=== PATIENT | male | born 1940 | race Caucasian/White ===

== ENCOUNTER 2016-10-25 08:19 | Emergency (ER) | payer MEDICARE, OTHER ==
[2016-10-25] MEDS ORDERED: methylPREDNISolone SUCCINATE 125 MG/2 ML VIAL IVP STA (08:47)
[2016-10-25] MEDS ORDERED: raNITIdine INJ 50 MG in SODIUM CHLORIDE 0.9% 50 ML IV ONE (08:48)
[2016-10-25] MEDS ORDERED: diphenhydrAMINE INJ 50 MG/ML VIAL IVP STA (08:48)
[2016-10-25] MEDS ORDERED: methylPREDNISolone SUCCINATE 125 MG/2 ML VIAL IVP ONE (09:00)
[2016-10-25] MEDS ORDERED: diphenhydrAMINE INJ 50 MG/ML VIAL ONE (09:00)
--- NOTE | 2016-10-25 09:30 | ED Physician Documentation ---
History of Present Illness - Stated complaint Stated Complaint: SWOLLEN TONGUE - Chief complaint Chief Complaint: Heent - History obtained from History obtained from: Patient - Additonal information Additional information: Patient is a 76-year-old male who presents with a chief complaint of a swollen tongue. He noticed the onset of symptoms this morning when he woke up. He denies any preceding symptoms the day before. He says today the right side of his tongue is swollen. 6 months ago he had an episode with the left side of the tongue was swollen and was treated with IM dose of cortisone. He denies any dermatologic complaints and is not felt weak tired or short of breath. The patient is not on ROSE MARY inhibitor knows his medications very well. He has been on metoprolol, flecainide, and Xarelto for long time. He was on dabigatran in the past however. Other than these 2 discrete episodes of tongue swelling is never had anything like this before. He denies any generalized urticaria, rash , shortness of breath, chest pain, nausea, vomiting. Review of systems: For pertinent positive and negatives in the review of systems please see the history of present illness, otherwise all other systems have been reviewed and are negative. Dragon disclaimer: Parts of this medical record were created using voice recognition technology. Because of the inherent limitations of this system, occasional same sounding word substitutions do occur and persist despite proofreading. Please read the document for context. Review of Systems Constitutional: denies: Fever Eyes: denies: Loss of vision Throat: denies: Sore throat Respiratory: denies: Dyspnea, Cough GI: denies: Abdominal Pain, Abdominal Swelling, Nausea, Vomiting PD PAST MEDICAL HISTORY - Past Medical History Past Medical History: Yes Cardiovascular: Hypertension, Atrial fibrillation - Past Surgical History Past Surgical History: Yes - Present Medications Home Medications: Ambulatory Orders Medication Instructions Recorded Confirmed Flecainide [Tambocar] 25 mg PO DAILY 10/25/16 10/25/16 Metoprolol Tartrate 12.5 mg PO BID 10/25/16 10/25/16 Rivaroxaban [Xarelto] 10 mg PO DAILY 10/25/16 10/25/16 - Allergies Allergies/Adverse Reactions: Allergies Allergy/AdvReac Type Severity Reaction Status Date / Time codeine Allergy Unknown Verified 10/25/16 08:25 - Social History Does the pt smoke?: No Smoking Status: Never smoker Does the pt drink ETOH?: Yes ETOH Use: Wine Does the pt have substance abuse?: No PD ED PE NORMAL - General General: Alert and oriented X 3, No acute distress, Well developed/nourished - HEENT HEENT: Atraumatic, Other (Mild increased thickness of the right side of the tongue. The rest of the oropharynx is completely normal on examination) - Neck Neck: Supple, no meningeal sign - Cardiac Cardiac: RRR, No murmur, No gallop, No rub - Respiratory Respiratory: No respiratory distress, Clear bilaterally - Abdomen Abdomen: Normal bowel sounds, Non tender - Male Male : Deferred, Pt declined - Rectal Rectal: Deferred - Derm Derm: Normal color, Warm and dry - Extremities Extremities: No deformity, No tenderness to palpate - Neuro Neuro: Alert and oriented X 3 Results - Vitals Vitals: Vital Signs - 24 hr 10/25/16 10/25/16 08:23 09:53 Temperature 36.4 C L Heart Rate 88 61 Respiratory 18 16 Rate Blood Pressure 128/55 L 132/77 H O2 Saturation 96 97 Oxygen O2 Source Room air - Labs Labs: Laboratory Tests 10/25/16 10/25/16 09:10 09:10 WBC 6.6 RBC 4.89 Hgb 15.1 Hct 45.0 MCV 92.0 MCH 31.0 MCHC 33.6 RDW 13.9 Plt Count 168 MPV 8.6 Neut # 3.9 Lymph # 1.8 [place] # 0.4 Eos # 0.2 Baso # 0.1 Absolute Nucleated RBC 0.00 Nucleated RBCs 0.0 Sodium 136 Potassium 3.9 Chloride 105 Carbon Dioxide 22 Anion Gap 9.0 BUN 24 H Creatinine 1.1 Estimated GFR (MDRD) 65 L Glucose 157 H Calcium 9.3 PD MEDICAL DECISION MAKING - ED course Complexity details: reviewed old records, reviewed results, re-evaluated patient , considered differential, d/w patient, d/w family, d/w PMD ED course: Patient continues to do well clinically. There is interval decrease in the size of his tongue with treatments here he has been watch for a couple hours here in emergency department. There is no definite cause. The medications he is on were all reviewed by looking at several database is not are believed to be offending agents for the cause of angioedema. This is his second episode. I did discuss the case with his primary care physician. We felt that this time he probably should continue the current medications and his primary care physician I believe is going to talk with the patient and may be consult with a retirement benefits specialist. I will place the patient on a week's course of loratadine. Disposition: To home Clinical impression: 1. Acute angioedema cause unknown Departure - Departure Disposition: 01 Home, Self Care Clinical Impression: Allergic angioedema Qualifiers: Encounter type: initial encounter Qualified Code(s): T78.3XXA - Angioneurotic edema, initial encounter Condition: Good Instructions: ED Angioedema
[2016-10-25 09:32] LABS: BASOPHILS # (AUTO) 0.1 10^3/uL (0.0-0.1); BASOPHILS % (AUTO) 2.2 %; EOSINOPHILS # (AUTO) 0.2 10^3/uL (0.0-0.7); EOSINOPHILS % (AUTO) 3.3 %; HGB - HEMOGLOBIN 15.1 g/dL (14.0-18.0); LYMPHOCYTES # (AUTO) 1.8 10^3/uL (1.5-3.5); LYMPHOCYTES % (AUTO) 27.8 %; MEAN CORPUSCULAR HGB CONC 33.6 g/dL (32.0-36.0); MEAN PLATELET VOLUME 8.6 fL (7.4-11.4); MONOCYTES # (AUTO) 0.4 10^3/uL (0.0-1.0); MONOCYTES % (AUTO) 6.9 %; NEUTROPHILS # (AUTO) 3.9 10^3/uL (1.5-6.6); NEUTROPHILS % (AUTO) 59.8 %; RED BLOOD COUNT 4.89 10^6/uL (4.70-6.10); RED CELL DISTRIBUTION WIDTH 13.9 % (12.0-15.0); UNCORRECTED WHITE BLOOD COUNT 6.6 x10^3/uL; WHITE BLOOD COUNT 6.6 x10^3/uL (4.8-10.8)
[2016-10-25 09:39] LABS: CALCIUM 9.3 mg/dL (8.5-10.3); CREATININE 1.1 mg/dL (0.6-1.2); POTASSIUM 3.9 mmol/L (3.5-5.0)
[2016-10-25 09:53] VITALS: BP 132/77
== END 2016-10-25 10:45 | disposition home or self-care (01) ==
LOC: ED 08:19
DX: T78.3XXA Angioneurotic edema, initial encounter (principal); I10 Essential (primary) hypertension; I48.91 Unspecified atrial fibrillation; Z79.01 Long term (current) use of anticoagulants
CPT/HCPCS: 36415; 80048; 85025; 96374; 96375; 99283; 99284; J7040

== ENCOUNTER 2017-03-31 09:41 | Outpatient (CLI) | payer MEDICARE, OTHER ==
[2017-03-31 10:04] LABS: BASOPHILS # (AUTO) 0.2 10^3/uL (0.0-0.1); BASOPHILS % (AUTO) 2.6 %; EOSINOPHILS # (AUTO) 0.2 10^3/uL (0.0-0.7); EOSINOPHILS % (AUTO) 3.6 %; HGB - HEMOGLOBIN 14.3 g/dL (14.0-18.0); LYMPHOCYTES # (AUTO) 1.8 10^3/uL (1.5-3.5); LYMPHOCYTES % (AUTO) 30.3 %; MEAN CORPUSCULAR HEMOGLOBIN 30.8 pg (27.0-31.0); MEAN CORPUSCULAR VOLUME 90.5 fL (80.0-94.0); MEAN PLATELET VOLUME 8.2 fL (7.4-11.4); MONOCYTES # (AUTO) 0.5 10^3/uL (0.0-1.0); MONOCYTES % (AUTO) 7.7 %; NEUTROPHILS # (AUTO) 3.4 10^3/uL (1.5-6.6); NEUTROPHILS % (AUTO) 55.8 %; PLT - PLATELET COUNT 153 10^3/uL (130-450); RED BLOOD COUNT 4.65 10^6/uL (4.70-6.10); RED CELL DISTRIBUTION WIDTH 14.3 % (12.0-15.0)
[2017-03-31 10:20] LABS: ALBUMIN 3.8 g/dL (3.2-5.5); ALBUMIN/GLOBULIN RATIO 1.2 (1.0-2.2); ALKALINE PHOSPHATASE 62 IU/L (42-121); ALT ALANINE AMINOTRANSFERASE 31 IU/L (10-60); AST ASPARTATE AMINOTRANSFERASE 29 IU/L (10-42); BILIRUBIN,TOTAL 0.8 mg/dL (0.2-1.0); BUN - BLOOD UREA NITROGEN 21 mg/dL (6-20); CARBON DIOXIDE - CO2 22 mmol/L (21-32); CHLORIDE 102 mmol/L (101-111); CHOL/HDL RATIO 5.7 (<5.0); CHOLESTEROL 199 mg/dL; GFR - MDRD 72 (>89); GLUCOSE 112 mg/dL (70-100); HDL CHOLESTEROL 35 mg/dL; LDL CHOLESTEROL,CALCULATED 142 mg/dL; LDL/HDL RATIO 4.1 (<3.6); SODIUM 136 mmol/L (135-145); VLDL CHOLESTEROL 22 mg/dL
== END 2017-03-31 09:42 | disposition home or self-care (01) ==
LOC: LAB 09:41
PROVIDERS: ATTEND Internal Medicine
DX: K21.9 Gastro-esophageal reflux disease without esophagitis (principal); D53.9 Nutritional anemia, unspecified; E78.5 Hyperlipidemia, unspecified; I10 Essential (primary) hypertension; I48.91 Unspecified atrial fibrillation
CPT/HCPCS: 36415; 80053; 80061; 84443; 85025

== ENCOUNTER 2017-04-23 11:12 | Outpatient (CLI) | payer MEDICARE, OTHER | END 2017-04-23 11:13 | disposition home or self-care (01) | LOC: SC 11:12 | PROVIDERS: ATTEND Nurse Practitioner Family | DX: G47.33 Obstructive sleep apnea (adult) (pediatric) (principal) | CPT/HCPCS: 99214; G0463; 99212 ==

== ENCOUNTER 2017-06-26 14:55 | Outpatient (CLI) | payer MEDICARE, OTHER ==
--- NOTE | 2017-06-26 17:32 | CT Report ---
SINUS CT: 06/26/2017 HISTORY: Chronic left-sided congestion. TECHNIQUE: Axial noncontrast images of the sinuses with sagittal and coronal reconstructions. In accordance with CT protocol optimization, one or more of the following dose reduction techniques were utilized for this exam: Automated exposure control, adjustment of mA and/or KV based on patient size, or use of iterative reconstructive technique. FINDINGS: Frontal sinuses: Clear. Sphenoid sinuses: Clear. Maxillary sinuses: Small retention cyst on the right, clear on the left. Ethmoid sinuses: Trace membrane thickening. Nasal cavity: Minor nasal septal deviation to the right. Nasopharyngeal soft tissues: Not enlarged. Temporomandibular joint and C1-C2 alignment anatomic. IMPRESSION: MINIMAL CHANGES IN THE PARANASAL SINUSES ABOVE. NO SIGNIFICANT LEFT-SIDED SINUS DISEASE APPRECIATED. TD: 06/26/2017 17:32
== END 2017-06-26 14:56 | disposition home or self-care (01) ==
LOC: DI 14:55
PROVIDERS: ATTEND Internal Medicine
DX: R51 Headache (principal)
CPT/HCPCS: 70486

== ENCOUNTER 2017-10-07 09:12 | Outpatient (CLI) | payer MEDICARE, OTHER ==
--- NOTE | 2017-10-07 15:22 | XRAY Report ---
Procedure Date: 10/07/2017 Accession Number: [id number] / [id number] Procedure: FL - Modified Barium Swallow W/SP CPT Code: FULL RESULT: EXAM: Modified Barium Swallow W/SP DATE: 10/07/2017 10:08 AM CLINICAL HISTORY: OTHER DYSPHAGIA COMPARISON: None. TECHNIQUE: Under the direction of speech pathology, patient swallowed various consistencies of barium under lateral fluoroscopic observation of the neck. Fluoroscopic exposure time: 55 seconds. Number of fluoroscopic images: 1. Cine fluoroscopy recorded. FINDINGS: Airway Protection: Normal epiglottic motion. Note is made of tracheal penetration. No aspiration is observed. Other: None. Please also refer to full report from Speech Pathology. IMPRESSION: Penetration without aspiration. RADIA
== END 2017-10-07 09:13 | disposition home or self-care (01) ==
LOC: DI 09:12
PROVIDERS: ATTEND Otolaryngology
DX: R13.19 Other dysphagia (principal)
CPT/HCPCS: 74230; 92611; G8996; G8997; G8998

== ENCOUNTER 2017-11-12 09:19 | Outpatient (CLI) | payer MEDICARE, OTHER ==
[2017-11-12 17:25] LABS: HGB - HEMOGLOBIN 14.4 g/dL (14.0-18.0); MEAN CORPUSCULAR HEMOGLOBIN 31.1 pg (27.0-31.0); MEAN CORPUSCULAR HGB CONC 33.9 g/dL (32.0-36.0); MEAN CORPUSCULAR VOLUME 91.8 fL (80.0-94.0); MEAN PLATELET VOLUME 8.8 fL (7.4-11.4); RED BLOOD COUNT 4.64 10^6/uL (4.70-6.10); RED CELL DISTRIBUTION WIDTH 14.4 % (12.0-15.0); WHITE BLOOD COUNT 6.1 x10^3/uL (4.8-10.8)
[2017-11-12 17:59] LABS: CREATININE 1.1 mg/dL (0.6-1.2)
== END 2017-11-12 09:20 | disposition home or self-care (01) ==
LOC: LAB.F 09:19
PROVIDERS: ATTEND Internal Medicine
DX: I48.0 Paroxysmal atrial fibrillation (principal); Z79.899 Other long term (current) drug therapy
CPT/HCPCS: 36415; 80048; 85027

== ENCOUNTER 2018-04-06 09:35 | Outpatient (CLI) | payer MEDICARE, OTHER ==
[2018-04-06 18:29] LABS: ALBUMIN/GLOBULIN RATIO 1.1 (1.0-2.2); BILIRUBIN,TOTAL 1.1 mg/dL (0.2-1.0); CALCIUM 9.5 mg/dL (8.5-10.3); CREATININE 0.9 mg/dL (0.6-1.2); TOTAL PROTEIN 7.6 g/dL (6.7-8.2)
[2018-04-06 18:30] LABS: BASOPHILS # (AUTO) 0.1 10^3/uL (0.0-0.1); BASOPHILS % (AUTO) 1.3 %; EOSINOPHILS # (AUTO) 0.1 10^3/uL (0.0-0.7); EOSINOPHILS % (AUTO) 1.1 %; HGB - HEMOGLOBIN 14.8 g/dL (14.0-18.0); LYMPHOCYTES # (AUTO) 2.6 10^3/uL (1.5-3.5); LYMPHOCYTES % (AUTO) 29.6 %; MEAN CORPUSCULAR HEMOGLOBIN 30.7 pg (27.0-31.0); MEAN CORPUSCULAR HGB CONC 33.2 g/dL (32.0-36.0); MEAN CORPUSCULAR VOLUME 92.5 fL (80.0-94.0); MEAN PLATELET VOLUME 8.7 fL (7.4-11.4); MONOCYTES # (AUTO) 0.7 10^3/uL (0.0-1.0); MONOCYTES % (AUTO) 7.9 %; NEUTROPHILS # (AUTO) 5.4 10^3/uL (1.5-6.6); NEUTROPHILS % (AUTO) 60.1 %; PLT - PLATELET COUNT 172 10^3/uL (130-450); RED BLOOD COUNT 4.83 10^6/uL (4.70-6.10); RED CELL DISTRIBUTION WIDTH 13.6 % (12.0-15.0); WHITE BLOOD COUNT 8.9 x10^3/uL (4.8-10.8)
== END 2018-04-06 09:36 | disposition home or self-care (01) ==
LOC: LAB.F 09:35
PROVIDERS: ATTEND Internal Medicine
DX: D53.9 Nutritional anemia, unspecified (principal); E78.5 Hyperlipidemia, unspecified; I10 Essential (primary) hypertension; I48.91 Unspecified atrial fibrillation; Z12.5 Encounter for screening for malignant neoplasm of prostate; Z79.899 Other long term (current) drug therapy
CPT/HCPCS: 80053; 84443; 85025; G0103; 36415; 84153

== ENCOUNTER 2018-05-11 10:47 | Outpatient (CLI) | payer MEDICARE, OTHER ==
[2018-05-11 17:16] LABS: BASOPHILS # (AUTO) 0.1 10^3/uL (0.0-0.1); BASOPHILS % (AUTO) 1.2 %; EOSINOPHILS # (AUTO) 0.2 10^3/uL (0.0-0.7); EOSINOPHILS % (AUTO) 2.5 %; HGB - HEMOGLOBIN 13.9 g/dL (14.0-18.0); LYMPHOCYTES # (AUTO) 1.5 10^3/uL (1.5-3.5); LYMPHOCYTES % (AUTO) 24.3 %; MEAN CORPUSCULAR HEMOGLOBIN 30.5 pg (27.0-31.0); MEAN CORPUSCULAR HGB CONC 32.9 g/dL (32.0-36.0); MEAN CORPUSCULAR VOLUME 92.7 fL (80.0-94.0); MEAN PLATELET VOLUME 8.5 fL (7.4-11.4); MONOCYTES # (AUTO) 0.4 10^3/uL (0.0-1.0); MONOCYTES % (AUTO) 7.2 %; NEUTROPHILS % (AUTO) 64.8 %; PLT - PLATELET COUNT 178 10^3/uL (130-450); RED BLOOD COUNT 4.54 10^6/uL (4.70-6.10); WHITE BLOOD COUNT 6.2 x10^3/uL (4.8-10.8)
[2018-05-11 17:35] LABS: INR 1.8 (0.8-1.2); PT - PROTHROMBIN TIME 19.8 secs (9.9-12.6)
[2018-05-11 18:23] LABS: CALCIUM 9.2 mg/dL (8.5-10.3); CREATININE 0.9 mg/dL (0.6-1.2)
== END 2018-05-11 10:48 | disposition home or self-care (01) ==
LOC: LAB.F 10:47
PROVIDERS: ATTEND Specialist
DX: I48.0 Paroxysmal atrial fibrillation (principal)
CPT/HCPCS: 36415; 80048; 85025; 85610; 85730

== ENCOUNTER 2018-07-08 16:08 | Emergency (ER) | payer MEDICARE, OTHER ==
[2018-07-08 16:21] VITALS: BP 113/84
[2018-07-08] MEDS ORDERED: ACETAMINOPHEN 325 MG TABLET PO STA (16:37)
--- NOTE | 2018-07-08 16:44 | ED Physician Documentation ---
History of Present Illness - Stated complaint Stated Complaint: GEN ILLNESS - Chief complaint Chief Complaint: General - History obtained from History obtained from: Patient, Family - History of Present Illness Timing: Other (This is a pretty healthy 78-year-old [facility]. 5 days ago he returned from [facility]. He did not take malaria prophylaxis. Starting 3 days ago he has had episodes of shaking chills. He has a cough but that is pretty much a chronic cough as is his runny nose. He denies GI complaints, nausea, vomiting, diarrhea, headache, abdominal pain. He has a rash on the left lower extremity. Thought was some sort of insect bite. Started Keflex for same yesterday.) Review of Systems Ten Systems: 10 systems reviewed and negative Constitutional: reports: Chills, Fatigue Nose: reports: Rhinorrhea / runny nose Throat: denies: Sore throat Respiratory: reports: Cough GI: denies: Abdominal Pain, Nausea, Vomiting, Diarrhea PD PAST MEDICAL HISTORY - Past Medical History Cardiovascular: Hypertension, Atrial fibrillation - Past Surgical History Past Surgical History: Yes - Present Medications Home Medications: Ambulatory Orders Medication Instructions Recorded Confirmed Flecainide [Tambocar] 25 mg PO DAILY 10/25/16 10/25/16 Loratadine 10 mg PO DAILY #7 capsule 10/25/16 Metoprolol Tartrate 12.5 mg PO BID 10/25/16 10/25/16 Rivaroxaban [Xarelto] 10 mg PO DAILY 10/25/16 10/25/16 Atovaquone/Proguanil HCl 4 tab PO DAILY 3 Days #12 tablet 07/08/18 [Atovaquone-Proguanil 250-100] - Allergies Allergies/Adverse Reactions: Allergies Allergy/AdvReac Type Severity Reaction Status Date / Time codeine Allergy Unknown Verified 07/08/18 16:21 - Social History Does the pt smoke?: No Smoking Status: Never smoker Does the pt drink ETOH?: Yes Does the pt have substance abuse?: No PD ED PE NORMAL - Vitals Vital signs reviewed: Yes - General General: Alert and oriented X 3, No acute distress - HEENT HEENT: PERRL, EOMI, Pharynx benign - Neck Neck: Supple, no meningeal sign, No bony TTP - Cardiac Cardiac: RRR, No murmur - Respiratory Respiratory: No respiratory distress, Clear bilaterally - Abdomen Abdomen: Non tender - Back Back: No CVA TTP, No spinal TTP - Derm Derm: Other (Small vesicular rash on the medial left ankle. I think it looks like shingles. He says he has had shingles before it was much more painful.) - Extremities Extremities: No edema, No calf tenderness / cord - Neuro Neuro: Alert and oriented X 3, Normal speech Results - Vitals Vitals: Vital Signs - 24 hr 07/08/18 16:20 Temperature 37.4 C Heart Rate 79 Respiratory 18 Rate Blood Pressure 113/84 H O2 Saturation 98 Oxygen O2 Source Room air - Labs Labs: Laboratory Tests 07/08/18 07/08/18 07/08/18 16:47 16:47 16:47 WBC 6.6 RBC 4.76 Hgb 14.6 Hct 43.4 MCV 91.1 MCH 30.7 MCHC 33.7 RDW 14.1 Plt Count 161 MPV 8.0 Neut # (Auto) 4.9 Lymph # (Auto) 1.1 L Brooks # (Auto) 0.5 Eos # (Auto) 0.1 Baso # (Auto) 0.1 Absolute Nucleated RBC 0.00 Nucleated RBC % 0.1 Sodium 136 Potassium 3.7 Chloride 102 Carbon Dioxide 25 Anion Gap 9.0 BUN 27 H Creatinine 1.0 Estimated GFR (MDRD) 72 L Glucose 128 H Lactic Acid 2.1 Calcium 9.1 Total Bilirubin 1.1 H AST 27 ALT 19 Alkaline Phosphatase 88 Total Protein 7.9 Albumin 4.1 Globulin 3.8 Albumin/Globulin Ratio 1.1 Lipase 35 Urine Color Urine Clarity Urine pH Ur Specific [place] Urine Protein Urine Glucose (UA) Urine Ketones Urine Occult Blood Urine Nitrite Urine Bilirubin Urine Urobilinogen Ur Leukocyte Esterase Ur Microscopic Review Urine Culture Comments Influenza A (Rapid) Influenza B (Rapid) 07/08/18 07/08/18 17:18 17:25 WBC RBC Hgb Hct MCV MCH MCHC RDW Plt Count MPV Neut # (Auto) Lymph # (Auto) Brooks # (Auto) Eos # (Auto) Baso # (Auto) Absolute Nucleated RBC Nucleated RBC % Sodium Potassium Chloride Carbon Dioxide Anion Gap BUN Creatinine Estimated GFR (MDRD) Glucose Lactic Acid Calcium Total Bilirubin AST ALT Alkaline Phosphatase Total Protein Albumin Globulin Albumin/Globulin Ratio Lipase Urine Color YELLOW Urine Clarity CLEAR Urine pH 6.0 Ur Specific [place] 1.020 Urine Protein TRACE Urine Glucose (UA) NEGATIVE Urine Ketones NEGATIVE Urine Occult Blood NEGATIVE Urine Nitrite NEGATIVE Urine Bilirubin NEGATIVE Urine Urobilinogen 0.2 (NORMAL) Ur Leukocyte Esterase NEGATIVE Ur Microscopic Review NOT INDICATED Urine Culture Comments NOT INDICATED Influenza A (Rapid) Negative Influenza B (Rapid) Negative - Rads (name of study) 2v chest Radiology: EMP read contemporaneously (Normal) PD MEDICAL DECISION MAKING - ED course ED course: 78-year-old gentleman who after the return from [facility] developed shaking chills, no measured fevers. He has a cough but that is chronic. Also runny nose but again that is chronic. Basic lab work looks negative and initial smear for malaria was reportedly negative but will be sent out for further testing. Vesna felder is still high on the diagnostic differential and as such he is treated with Malarone. Departure - Departure Disposition: 01 Home, Self Care Clinical Impression: Chills Fever Qualifiers: Fever type: due to other condition Qualified Code(s): R50.81 - Fever presenting with conditions classified elsewhere Condition: Good Record reviewed to determine appropriate education?: Yes Instructions: Malaria Prescriptions: Atovaquone/Proguanil HCl [Atovaquone-Proguanil 250-100] 4 tab PO DAILY 3 Days #12 tablet Comments: As discussed malaria still seems most likely given the travel exposure even with the a negative initial test, further testing will be performed late this evening and tomorrow morning. Return for new or worsening symptoms. Follow-up with your physician on Friday.
[2018-07-08 16:57] LABS: BASOPHILS # (AUTO) 0.1 10^3/uL (0.0-0.1); BASOPHILS % (AUTO) 0.9 %; EOSINOPHILS # (AUTO) 0.1 10^3/uL (0.0-0.7); EOSINOPHILS % (AUTO) 1.7 %; HGB - HEMOGLOBIN 14.6 g/dL (14.0-18.0); LYMPHOCYTES # (AUTO) 1.1 10^3/uL (1.5-3.5); LYMPHOCYTES % (AUTO) 16.1 %; MEAN CORPUSCULAR HEMOGLOBIN 30.7 pg (27.0-31.0); MEAN CORPUSCULAR HGB CONC 33.7 g/dL (32.0-36.0); MEAN CORPUSCULAR VOLUME 91.1 fL (80.0-94.0); MONOCYTES # (AUTO) 0.5 10^3/uL (0.0-1.0); MONOCYTES % (AUTO) 6.9 %; NEUTROPHILS # (AUTO) 4.9 10^3/uL (1.5-6.6); NEUTROPHILS % (AUTO) 74.4 %; PLT - PLATELET COUNT 161 10^3/uL (130-450); RED BLOOD COUNT 4.76 10^6/uL (4.70-6.10); RED CELL DISTRIBUTION WIDTH 14.1 % (12.0-15.0); WHITE BLOOD COUNT 6.6 x10^3/uL (4.8-10.8)
[2018-07-08 17:12] LABS: ALBUMIN 4.1 g/dL (3.2-5.5); ALBUMIN/GLOBULIN RATIO 1.1 (1.0-2.2); BILIRUBIN,TOTAL 1.1 mg/dL (0.2-1.0); CALCIUM 9.1 mg/dL (8.5-10.3); TOTAL PROTEIN 7.9 g/dL (6.7-8.2)
--- NOTE | 2018-07-08 17:15 | XRAY Report ---
Reason: fever cough Procedure Date: 07/08/2018 Accession Number: [id number] / [id number] Procedure: XR - Chest 2 View X-Ray CPT Code: 51629 FULL RESULT: EXAM: CHEST RADIOGRAPHY EXAM DATE: 07/08/2018 05:04 PM. CLINICAL HISTORY: Fever cough. COMPARISON: CHEST 2 VIEW PA/LAT 08/19/2012 11:15 AM. TECHNIQUE: 2 views. FINDINGS: Lungs/Pleura: No focal opacities evident. No pleural effusion. No pneumothorax. Normal volumes. Mediastinum: Heart and mediastinal contours are unremarkable. Other: None. IMPRESSION: No focal opacity to suspect pneumonia. RADIA
[2018-07-08 17:26] LABS: BILIRUBIN,URINE NEGATIVE (NEGATIVE); GLUCOSE, URINE (UA) NEGATIVE (NEGATIVE); KETONES,URINE (UA) NEGATIVE (NEGATIVE); LEUKOCYTE ESTERASE, URINE NEGATIVE (NEGATIVE); NITRITE,URINE NEGATIVE (NEGATIVE); OCCULT BLOOD,URINE NEGATIVE (NEGATIVE); PROTEIN,URINE TRACE mg/dL (NEGATIVE); UROBILINOGEN,URINE 0.2 (NORMAL) E.U./dL (NORMAL)
[2018-07-08 17:28] LABS: CLARITY,URINE CLEAR (CLEAR)
== END 2018-07-08 18:03 | disposition home or self-care (01) ==
LOC: ED 16:08
DX: R50.81 Fever presenting with conditions classified elsewhere (principal); R21 Rash and other nonspecific skin eruption; I10 Essential (primary) hypertension
CPT/HCPCS: 36415; 71046; 80053; 81003; 81599; 83605; 83690; 85025; 87040; 87275; 87276; 99283; A9270; 81001; 87086

== ENCOUNTER 2018-10-19 13:37 | Outpatient (CLI) | payer MEDICARE, OTHER | END 2018-10-19 13:38 | disposition home or self-care (01) | LOC: LAB.S 13:37 | PROVIDERS: ATTEND Registered Nurse | DX: Z12.5 Encounter for screening for malignant neoplasm of prostate (principal); R97.20 Elevated prostate specific antigen [PSA] | CPT/HCPCS: 36415; G0103; 84153 ==

== ENCOUNTER 2018-10-22 14:22 | Outpatient (CLI) | payer MEDICARE, OTHER | END 2018-10-22 14:23 | disposition home or self-care (01) | LOC: RT 14:22 | PROVIDERS: ATTEND Internal Medicine Cardiovascular Disease | DX: I48.91 Unspecified atrial fibrillation (principal) | CPT/HCPCS: 93005 ==

== ENCOUNTER 2019-09-09 14:59 | Outpatient (CLI) | payer MEDICARE, OTHER | END 2019-09-09 15:00 | disposition home or self-care (01) | LOC: RT 14:59 | PROVIDERS: ATTEND Internal Medicine Cardiovascular Disease | DX: I48.91 Unspecified atrial fibrillation (principal) | CPT/HCPCS: 93005 ==

== ENCOUNTER 2020-01-25 07:00 | Outpatient (CLI) | payer MEDICARE, OTHER | END 2020-01-25 23:59 | disposition home or self-care (01) | LOC: LAB.R 07:00 | PROVIDERS: ATTEND Physician Assistant Medical | DX: N39.0 Urinary tract infection, site not specified (principal); R30.0 Dysuria | CPT/HCPCS: 87077; 87086; 87181 ==

== ENCOUNTER 2020-02-03 08:00 | Outpatient (CLI) | payer MEDICARE, OTHER | END 2020-02-03 23:59 | disposition home or self-care (01) | LOC: LAB.F 08:00 | PROVIDERS: ATTEND Internal Medicine | DX: N39.0 Urinary tract infection, site not specified (principal) | CPT/HCPCS: 81002 ==

== ENCOUNTER 2020-02-04 11:15 | Outpatient (CLI) | payer MEDICARE, OTHER | END 2020-02-04 11:16 | disposition home or self-care (01) | LOC: LAB.S 11:15 | PROVIDERS: ATTEND Internal Medicine | DX: N41.9 Inflammatory disease of prostate, unspecified (principal) | CPT/HCPCS: 36415; 84153 ==

== ENCOUNTER 2020-07-17 08:22 | Outpatient (CLI) | payer MEDICARE, OTHER ==
[2020-07-17 14:34] LABS: BASOPHILS # (AUTO) 0.1 10^3/uL (0.0-0.1); BASOPHILS % (AUTO) 1.6 %; EOSINOPHILS # (AUTO) 0.3 10^3/uL (0.0-0.7); EOSINOPHILS % (AUTO) 4.4 %; HCT - HEMATOCRIT 42.2 % (42.0-52.0); HGB - HEMOGLOBIN 13.7 g/dL (14.0-18.0); LYMPHOCYTES % (AUTO) 32.6 %; MEAN CORPUSCULAR HGB CONC 32.5 g/dL (32.0-36.0); MEAN CORPUSCULAR VOLUME 92.5 fL (80.0-94.0); MEAN PLATELET VOLUME 10.4 fL (7.4-11.4); MONOCYTES # (AUTO) 0.4 10^3/uL (0.0-1.0); NEUTROPHILS # (AUTO) 3.3 10^3/uL (1.5-6.6); NEUTROPHILS % (AUTO) 54.1 %; PLT - PLATELET COUNT 180 10^3/uL (130-450); RED BLOOD COUNT 4.56 10^6/uL (4.70-6.10); RED CELL DISTRIBUTION WIDTH 13.8 % (12.0-15.0); WHITE BLOOD COUNT 6.1 x10^3/uL (4.8-10.8)
[2020-07-17 14:55] LABS: ALBUMIN/GLOBULIN RATIO 1.2 (1.0-2.2); ALKALINE PHOSPHATASE 66 IU/L (42-121); ALT ALANINE AMINOTRANSFERASE 19 IU/L (10-60); AST ASPARTATE AMINOTRANSFERASE 21 IU/L (10-42); BUN - BLOOD UREA NITROGEN 29 mg/dL (6-20); CALCIUM 9.3 mg/dL (8.5-10.3); CARBON DIOXIDE - CO2 23 mmol/L (21-32); CHLORIDE 110 mmol/L (101-111); CHOL/HDL RATIO 5.7 (<5.0); CHOLESTEROL 228 mg/dL; GFR - MDRD 72 (>89); GLUCOSE 104 mg/dL (70-100); HDL CHOLESTEROL 40 mg/dL; LDL CHOLESTEROL,CALCULATED 165 mg/dL; LDL/HDL RATIO 4.1 (<3.6); POTASSIUM 3.8 mmol/L (3.5-5.0); SODIUM 142 mmol/L (135-145); TOTAL PROTEIN 7.3 g/dL (6.7-8.2); TRIGLYCERIDES 116 mg/dL; VLDL CHOLESTEROL 23 mg/dL
== END 2020-07-17 08:23 | disposition home or self-care (01) ==
LOC: LAB.S 08:22
PROVIDERS: ATTEND Internal Medicine
DX: I10 Essential (primary) hypertension (principal); E78.5 Hyperlipidemia, unspecified
CPT/HCPCS: 36415; 80053; 80061; 83721; 85025

== ENCOUNTER 2020-10-12 13:17 | Outpatient (CLI) | payer MEDICARE, OTHER ==
[2020-10-12 14:31] VITALS: BP 150/87
--- NOTE | 2020-10-12 14:31 | SLEEP CARE CONSULTATION ---
Information from patient questionnaire entered by Nohemi Restrepo. I have reviewed and concur with the information entered by Nohemi Restrepo. This document represents the service I personally performed and the decisions made by me, Melina Hagan ARNP. History of Present Illness Service Date and Time: 10/12/2020 1317 Reason for Visit: New patient, Previously diagnosed sleep apnea (moderate - AHI - 18.1 in 2015), sleep apnea on CPAP therapy ([employer] no longer giving supplies), Re-establish care (last seen 03/2017) Chief Complaint: reports: Other (update supplies) Date of Onset: 12 years Usual bedtime: 10 pm Time it takes to fall asleep: 5-30 minutes Snores at night: Yes Observed to quit breathing while asleep: No Sleeps alone due to snoring: No Number of times waking at night: 0-1 Reasons for waking at night: reports: Bathroom Toss, Turn, or Twitch while sleeping: No Usually gets out of bed at: 8 am Feels refreshed in the morning: Yes Morning headache: No Sleepy or fatigued during the day: Yes Ever fallen asleep while driving: No Takes day naps: Yes Dreams during day naps: Yes Prior sleep studies: Yes Year and Where: 2015 - [facility]; 2008 - [place], [place] Type of Sleep Study: Polysomnography Additional HPI information: LASHELL WIRGHT was previously diagnosed to have moderate, AHI 18.1, obstructive sleep apnea-hypopnea syndrome and comes in today to re-establish care for CPAP therapy. - Parasomnia Symptoms Ever been unable to move upon waking from sleep: No Walks in sleep: No Talks in sleep: No Ever acted out dreams in sleep: No Ever felt weak in the knees when startled or emotional: No Bothered by creepy, crawly, restless sensations in legs: No Problems with memory or concentration: Yes CPAP Compliance Data - Data Reviewed with Patient Average duration of nightly device use: 8 hr 11 min Compliance rate %: 82.2 (180 days) Current pressure setting (cmH2O): 10 Humidity settin Average residual AHI: 1.6 Average large leak: 18 min 1 sec Compliance data discussion: He is using strips to keep his mouth close at night. He is using a Wisp mask. He used to get his supplies from [employer] but now he has been buying them on [employer]. Subjective Patient concerns: reports: mask leak noise. denies: aerophagia, mask discomfort, air blowing in eyes, condensation in mask/hose, nasal congestion, dry mouth, nose, throat, epistaxis, other Observed to snore while using device: No Current pressure setting perceived as: comfortable On therapy, patient: reports: sleeping better, awakening more refreshed, being more awake and alert during the day, more rested overall. denies: drowsiness while driving Initial [place] Sleepiness Scale score: 6 (in 2012) Current [place] Sleepiness Scale score: 8 Past Medical History Past Medical History: reports: Arrythmia (Atrial fibrillation), GERD Social History The patient's occupation is a Retired. Patient is and lives in [facility]. Have you smoked in the past 12 months: No Cigarettes per day (20/pack): 40 Years of smokin Quit date: 1971 Smoking Pack Years: 20.0 Alcohol use: Yes Alcohol amount and frequency: 4 oz a day, every day Caffeine use: Yes Caffeine amount and frequency: infrequently Family History Family history of sleep disordered breathing: No Allergies and Home Medications Drug allergies reviewed: Yes Home medication list reviewed: Yes Allergy and home medication list: Metoprolol Xarelto Zinc Chondroitin Multivitamin cetirizine Review of Systems Weight loss over past 5 years: 20 Cardiovascular: reports: irregular heart rate or pulse Respiratory: reports: chronic cough Gastrointestinal: reports: heartburn, difficulty swallowing (infrequently) Ear/Nose/Throat: reports: nasal congestion Immunologic: reports: sneezing Physical Exam Blood Pressure: 150/87 Cuff size: wrist Heart Rate: 60 O2 Saturation: 98 Height: 6 ft Weight: 241 lb Body Mass Index: 32.6 BMI Classification: Obese Heart: regular rate and rhythm Lungs: clear bilaterally Impression and Plan 1. Obstructive Sleep Apnea-Hypopnea Syndrome, moderate, with good treatment compliance and good apnea control. On CPAP therapy, the patient has better sleep quality and is more rested overall. Patient machine may be included in the [employer] recall. He is eligible for a new device. The patients CPAP is over 5 years old and of reasonable use. Thus, the CPAP will be updated. The new CPAPs also have a better humidity system which could assist control of patients dryness symptoms. A DWO prescription will be made. Compliance guidelines for new device and follow up discussed. Patient denies any black particles in the hose or other parts of the device. I advised the patient to use an inline filter that he can obtain online to reduce chance of any particles been inhaled. Patient was advised to register his machine for the recall. Patient voiced understanding. Patient's apnea severity and rationale for calderon atment to reduce apnea, improve sleep quality and reduce cardiovascular and cerebrovascular events was reviewed. I also reviewed the benefit of consistent device use of CPAP for arrhythmia. * Continue CPAP pressure at 10 cmH2O * Update machine and supplies * Patient to register device with recall * Notify me if snoring with mask or feeling that the pressure is too much or too little * Attempt to lose weight * Call this office if any problems using CPAP * Return for follow up one month after obtaining new device, or sooner if concerns arise Counseling Topics: Spare mask, Weight loss health impact Visit Type: In Office Time Spent with Patient (minutes): 32 Provider Statement: I spent 100% of the Face to Face Visit with the patient with greater than 50% spent counseling the patient and coordination of care.
== END 2020-10-12 13:18 | disposition home or self-care (01) ==
LOC: SC 13:17
PROVIDERS: ATTEND Nurse Practitioner Family
DX: G47.33 Obstructive sleep apnea (adult) (pediatric) (principal); E66.9 Obesity, unspecified; Z68.32 Body mass index [BMI] 32.0-32.9, adult; Z87.891 Personal history of nicotine dependence
CPT/HCPCS: 99203; G0463; 99212

== ENCOUNTER 2020-12-13 13:57 | Outpatient (CLI) | payer MEDICARE, OTHER | END 2020-12-13 13:58 | disposition home or self-care (01) | LOC: RT 13:57 | PROVIDERS: ATTEND Internal Medicine Cardiovascular Disease | DX: I48.0 Paroxysmal atrial fibrillation (principal) | CPT/HCPCS: 93005 ==

== ENCOUNTER 2021-01-02 15:45 | Outpatient (CLI) | payer MEDICARE, OTHER ==
[2021-01-02 19:46] LABS: BASOPHILS # (AUTO) 0.1 10^3/uL (0.0-0.1); BASOPHILS % (AUTO) 1.5 %; EOSINOPHILS # (AUTO) 0.2 10^3/uL (0.0-0.7); EOSINOPHILS % (AUTO) 3.5 %; HCT - HEMATOCRIT 42.8 % (42.0-52.0); LYMPHOCYTES # (AUTO) 2.2 10^3/uL (1.5-3.5); LYMPHOCYTES % (AUTO) 32.3 %; MEAN CORPUSCULAR HEMOGLOBIN 30.2 pg (27.0-31.0); MEAN CORPUSCULAR HGB CONC 32.7 g/dL (32.0-36.0); MEAN CORPUSCULAR VOLUME 92.4 fL (80.0-94.0); MEAN PLATELET VOLUME 10.1 fL (7.4-11.4); MONOCYTES # (AUTO) 0.5 10^3/uL (0.0-1.0); MONOCYTES % (AUTO) 7.4 %; NEUTROPHILS # (AUTO) 3.8 10^3/uL (1.5-6.6); PLT - PLATELET COUNT 177 10^3/uL (130-450); RED BLOOD COUNT 4.63 10^6/uL (4.70-6.10); RED CELL DISTRIBUTION WIDTH 13.9 % (12.0-15.0); WHITE BLOOD COUNT 6.9 x10^3/uL (4.8-10.8)
[2021-01-02 20:00] LABS: ALBUMIN 4.1 g/dL (3.2-5.5); ALBUMIN/GLOBULIN RATIO 1.2 (1.0-2.2); ALKALINE PHOSPHATASE 66 IU/L (42-121); ALT ALANINE AMINOTRANSFERASE 23 IU/L (10-60); AST ASPARTATE AMINOTRANSFERASE 31 IU/L (10-42); BILIRUBIN,TOTAL 1.2 mg/dL (0.2-1.0); BUN - BLOOD UREA NITROGEN 30 mg/dL (6-20); CALCIUM 9.1 mg/dL (8.5-10.3); CARBON DIOXIDE - CO2 24 mmol/L (21-32); CHLORIDE 107 mmol/L (101-111); CHOL/HDL RATIO 5.3 (<5.0); CHOLESTEROL 201 mg/dL; CREATININE 0.9 mg/dL (0.6-1.2); GFR - MDRD 81 (>89); GLUCOSE 91 mg/dL (70-100); HDL CHOLESTEROL 38 mg/dL; LDL CHOLESTEROL,CALCULATED 136 mg/dL; LDL/HDL RATIO 3.6 (<3.6); MAGNESIUM 2.3 mg/dL (1.7-2.8); SODIUM 140 mmol/L (135-145); TOTAL PROTEIN 7.5 g/dL (6.7-8.2); TRIGLYCERIDES 137 mg/dL; VLDL CHOLESTEROL 27 mg/dL
== END 2021-01-02 15:46 | disposition home or self-care (01) ==
LOC: LAB.S 15:45
PROVIDERS: ATTEND Internal Medicine
DX: I10 Essential (primary) hypertension (principal); Z12.11 Encounter for screening for malignant neoplasm of colon; E87.6 Hypokalemia
CPT/HCPCS: 36415; 80053; 80061; 83721; 83735; 85025

== ENCOUNTER 2022-01-29 13:02 | Outpatient (CLI) | payer MEDICARE, OTHER ==
[2022-01-29 13:43] VITALS: BP 130/80
--- NOTE | 2022-01-29 13:43 | SLEEP CARE CONSULTATION ---
Information from patient questionnaire entered by Viktoriya Regan. I have reviewed and concur with the information entered by Viktoriya Regan. This document represents the service I personally performed and the decisions made by me, Melina Hagan ARNP. History of Present Illness Service Date and Time: 01/29/2022 1302 Previous diagnosis: Moderate, Obstructive Sleep Apnea-Hypopnea Syndrome AHI: 18.1 (in 2015) Reason for follow up: annual (LAST SEEN 09/2020) Equipment type: CPAP Equipment obtained from: [employer] ([employer] supplies) Mask style: Nasal Mask brand: Resmed (Airtouch N20; uses mouth strips to keep lips closed) Backup mask available: Yes (old mask) Last cushion change: month Prior sleep studies: Yes Year and Where: 2015 - [facility]; 2008 - [place], [place] Type of Sleep Study: Polysomnography HPI additional information: LASHELL WRIGHT was diagnosed to have moderate, AHI 18.1, obstructive sleep apnea-hypopnea syndrome and returned today for CPAP therapy annual follow-up. Sleep Study - Results Type of Sleep Study: Polysomnography Prior sleep studies: Yes Year and Where: 2015 - [facility]; 2008 - [place], [place] CPAP Compliance Data - Data Reviewed with Patient Average duration of nightly device use: 8 hours 14 minutes Compliance rate %: 81 (153/180 days used) Current pressure setting (cmH2O): 10 Average residual AHI: 1.1 Central apnea: 0.2 Obstructive apnea: 0.0 Average large leak: 18 lpm Subjective Patient concerns: reports: mask leak noise, nasal congestion, other (breathing through mouth). denies: aerophagia, mask discomfort, air blowing in eyes, condensation in mask/hose, dry mouth, nose, throat, epistaxis Observed to snore while using device: No Current pressure setting perceived as: comfortable On therapy, patient: reports: sleeping better, awakening more refreshed, being more awake and alert during the day, more rested overall. denies: drowsiness while driving Initial [place] Sleepiness Scale score: 6 (in 2011) Current [place] Sleepiness Scale score: 6 Allergies and Home Medications Drug allergies reviewed: Yes (codeine) Home medication list reviewed: Yes (metformin - double blind study for alzheimers for 2 yrs) Allergy and home medication list: Allergies codeine Allergy (Verified 07/08/18 16:21) Unknown Review of Systems Review of systems same as previous: Yes (no changes) Physical Exam Vital signs obtained and entered by: VIKTORIYA Morrison MA Blood Pressure: 130/80 (LEFT ARM) Cuff size: regular Heart Rate: 67 O2 Saturation: 97 Height: 6 ft Weight: 242 lb 9.6 oz Body Mass Index: 32.8 BMI Classification: Obese Impression and Plan 1. Obstructive Sleep Apnea-Hypopnea Syndrome, moderate, with good treatment compliance and good apnea control. On CPAP therapy, the patient has better sleep quality and is more rested overall. He states he would like to try a full face mask. He is using a nasal cushion N20 Airtouch mask but has to put mouth tapes to keep his mouth closed. He thinks a full face would be more comfortable. He did try the [employer]wear full face mask but has to tighten it so much his jaw mus cles hurt in the morning. I will write for a mask refitting for a full face mask and update his prescription for supplies. He voiced agreement with plan of care. Patient's apnea severity and rationale for treatment to reduce apnea, improve sleep quality and reduce cardiovascular and cerebrovascular events was reviewed. I also reviewed the benefit of consistent device use of CPAP for arrhythmia and gastric reflux. 2. Obesity, unspecified. Currently patients BMI is 32.8. Obesity increases the risk of apnea, CPAP pressure requirements and overall health risks especially cardiovascular and diabetes. Thus patient is advised to try to lose weight. * Continue CPAP pressure at 10 cmH2O * Mask refitting for full face mask * Update supplies * Notify me if snoring with mask or feeling that the pressure is too much or too little * Attempt to lose weight * Call this office if any problems using CPAP * Return for follow up in 1 year, or sooner if concerns arise Counseling Topics: Spare mask, Weight loss health impact Visit Type: In Office Time Spent with Patient (minutes): 20 Provider Statement: I spent 100% of the Face to Face Visit with the patient with greater than 50% spent counseling the patient and coordination of care.
== END 2022-01-29 13:03 | disposition home or self-care (01) ==
LOC: SC 13:02
PROVIDERS: ATTEND Nurse Practitioner Family
DX: G47.33 Obstructive sleep apnea (adult) (pediatric) (principal); E66.9 Obesity, unspecified; Z68.32 Body mass index [BMI] 32.0-32.9, adult
CPT/HCPCS: 99213; G0463; 99212

== ENCOUNTER 2022-02-09 08:35 | Emergency (ER) | payer MEDICARE, OTHER ==
--- NOTE | 2022-02-09 09:55 | ED Physician Documentation ---
PD HPI FOCAL NEURO - Stated complaint Stated Complaint: NUMBNESS/ABD PX - Chief complaint Chief Complaint: General - History obtained from History obtained from: Patient - History of Present Illness Timing - onset: Today, Yesterday Timing - duration: Days Timing - details: Gradual onset, Still present, Waxing and waning (he has had feeling of numbness in both legs intermittently over the past 2 days. Not associated with walking. some muscle pains with walking and steps. no fevers. no back pains. no dysuria.) Severity of deficit: Mild Weakness: No: Leg, Right Numbness: Leg, Right, Left Associated symptoms: No: Headache, Nausea / vomiting Baseline status: positive: A&OX3, ambulatory, indep Similar symptoms before: Has not had sx before Recently seen: Admitted (recently in [facility] for UTI symptoms and had bacteremia of Klebisella oxytosa. Rocephin for 2 days and had repeat blood cultures negative. Discharged on cipro for 2 weeks. hs been on it for a week. He is concerned the symptoms are side effect of the cipro.) Review of Systems Constitutional: denies: Fever (not since prior to discharge from hospital), Chills, Myalgias Nose: denies: Rhinorrhea / runny nose, Congestion Throat: denies: Sore throat Cardiac: denies: Chest pain / pressure Respiratory: denies: Cough GI: denies: Abdominal Pain, Nausea, Vomiting, Diarrhea, Bloody / black stool : denies: Dysuria Skin: denies: Rash, Lesions Musculoskeletal: denies: Back pain Neurologic: denies: Near syncope, Altered mental status, Headache PD PAST MEDICAL HISTORY - Past Medical History Cardiovascular: Hypertension, Atrial fibrillation Respiratory: None Neuro: None - Past Surgical History Past Surgical History: Yes - Present Medications Home Medications: Ambulatory Orders Medication Instructions Recorded Confirmed Metoprolol Tartrate 12.5 mg PO BID 10/25/16 02/01/22 Rivaroxaban [Xarelto] 20 mg PO DAILY 10/25/16 02/01/22 Ciprofloxacin [Cipro] 250 mg PO Q12H #24 tablet 02/04/22 Lactobacillus Acidophilus 1 each PO DAILY #12 cap 02/05/22 [Acidophilus Probiotic] Cefpodoxime Proxetil [Vantin] 100 mg PO BID #14 tablet 02/09/22 - Allergies Allergies/Adverse Reactions: Allergies Allergy/AdvReac Type Severity Reaction Status Date / Time codeine Allergy Unknown Verified 02/09/22 09:31 - Social History Does the pt smoke?: No Smoking Status: Former smoker Does the pt drink ETOH?: Yes Does the pt have substance abuse?: No PD ED PE NORMAL - Vitals Vital signs reviewed: Yes - General General: Alert and oriented X 3, No acute distress, Well developed/nourished - HEENT HEENT: Pharynx benign - Neck Neck: Supple, no meningeal sign, No bony TTP, No adenopathy - Cardiac Cardiac: RRR, No murmur, No rub - Respiratory Respiratory: No respiratory distress, Clear bilaterally - Abdomen Abdomen: Soft, Non tender, No organomegaly - Male Male : Deferred - Rectal Rectal: Deferred - Back Back: No CVA TTP, No spinal TTP - Derm Derm: Normal color, Warm and dry - Extremities Extremities: No edema, No calf tenderness / cord - Neuro Neuro: Alert and oriented X 3, No motor deficit, No sensory deficit, Normal speech Results - Vitals Vitals: Vital Signs - 24 hr 02/09/22 02/09/22 02/09/22 09:24 09:58 12:25 Temperature 37.0 C Heart Rate 74 66 80 Respiratory 16 15 18 Rate Blood Pressure 147/54 H 154/64 H O2 Saturation 96 95 98 Oxygen O2 Source Room air - Labs Labs: Laboratory Tests 02/09/22 02/09/22 10:45 10:45 WBC 7.9 RBC 3.61 L Hgb 11.0 L Hct 32.6 L MCV 90.3 MCH 30.5 MCHC 33.7 RDW 13.5 Plt Count 221 MPV 9.8 Neut # (Auto) 5.3 Lymph # (Auto) 1.6 [place] # (Auto) 0.7 Eos # (Auto) 0.2 Baso # (Auto) 0.1 Absolute Nucleated RBC 0.00 Nucleated RBC % 0.0 Sodium 138 Potassium 3.9 Chloride 106 Carbon Dioxide 22 Anion Gap 10.0 BUN 24 H Creatinine 0.8 Estimated GFR (MDRD) 92 Glucose 88 Calcium 8.8 Magnesium 2.1 Total Bilirubin 1.2 H AST 24 ALT 28 Alkaline Phosphatase 52 C-Reactive Protein 8.3 H Total Protein 6.8 Albumin 3.2 Globulin 3.6 Albumin/Globulin Ratio 0.9 L Lipase 29 PD MEDICAL DECISION MAKING - ED course Complexity details: reviewed old records, reviewed results (labs are good. Some elevation CRP but not too high. No back pain nor fevers. can get repeat blood cultures to ensure still negative. can change form Cipro to OCeph2 based on recent blood cultures. ), considered differential (has some numbness of legs and muscles aching. Not on statin. Denies back pain nor fever (decreases my concern for epidural infection from recent bacteremia)), d/w patient Departure - Departure Disposition: 01 Home, Self Care Clinical Impression: Paresthesia, Medication side effects present Condition: Stable Record reviewed to determine appropriate education?: Yes Prescriptions: Cefpodoxime Proxetil [Vantin] 100 mg PO BID #14 tablet Comments: Your basic blood count and electrolytes are normal. Your symptoms may very well be side effects to the ciprofloxacin. As such I would have you stay off the ciprofloxacin/discontinue it. We can change to Vantin cephalosporin antibiotic twice daily for the remaining week of your antibiotic course. Recheck if not improving over the next few days and return if worse. I transmitted prescription to [facility] in [place]. Discharge Date/Time: 02/09/22 12:30
[2022-02-09 11:03] LABS: BASOPHILS # (AUTO) 0.1 10^3/uL (0.0-0.1); BASOPHILS % (AUTO) 1.3 %; EOSINOPHILS # (AUTO) 0.2 10^3/uL (0.0-0.7); EOSINOPHILS % (AUTO) 2.4 %; HCT - HEMATOCRIT 32.6 % (42.0-52.0); LYMPHOCYTES # (AUTO) 1.6 10^3/uL (1.5-3.5); LYMPHOCYTES % (AUTO) 20.6 %; MEAN CORPUSCULAR HEMOGLOBIN 30.5 pg (27.0-31.0); MEAN CORPUSCULAR HGB CONC 33.7 g/dL (32.0-36.0); MEAN CORPUSCULAR VOLUME 90.3 fL (80.0-94.0); MEAN PLATELET VOLUME 9.8 fL (7.4-11.4); MONOCYTES # (AUTO) 0.7 10^3/uL (0.0-1.0); MONOCYTES % (AUTO) 8.3 %; NEUTROPHILS # (AUTO) 5.3 10^3/uL (1.5-6.6); NEUTROPHILS % (AUTO) 66.9 %; PLT - PLATELET COUNT 221 10^3/uL (130-450); RED BLOOD COUNT 3.61 10^6/uL (4.70-6.10); RED CELL DISTRIBUTION WIDTH 13.5 % (12.0-15.0); WHITE BLOOD COUNT 7.9 x10^3/uL (4.8-10.8)
[2022-02-09 11:21] LABS: ALBUMIN 3.2 g/dL (3.2-5.5); ALBUMIN/GLOBULIN RATIO 0.9 (1.0-2.2); BILIRUBIN,TOTAL 1.2 mg/dL (0.2-1.0); CALCIUM 8.8 mg/dL (8.5-10.3); CREATININE 0.8 mg/dL (0.6-1.2); CRP - C-REACTIVE PROTEIN 8.3 mg/dL (0-1.0); MAGNESIUM 2.1 mg/dL (1.7-2.8); POTASSIUM 3.9 mmol/L (3.5-5.0); TOTAL PROTEIN 6.8 g/dL (6.7-8.2)
[2022-02-09] MEDS ORDERED: CEFPODOXIME PROXETIL 100 MG TABLET PO STA (12:02)
[2022-02-09 12:27] VITALS: BP 154/64
== END 2022-02-09 12:30 | disposition home or self-care (01) ==
LOC: ED 08:35
DX: R20.2 Paresthesia of skin (principal); T50.905A Adverse effect of unspecified drugs, medicaments and biological substances, initial encounter; Z87.891 Personal history of nicotine dependence; I48.91 Unspecified atrial fibrillation; Z79.01 Long term (current) use of anticoagulants; I10 Essential (primary) hypertension
CPT/HCPCS: 36415; 80053; 83690; 83735; 85025; 86140; 87040; 99283; A9270

== ENCOUNTER 2023-02-21 11:26 | Outpatient (CLI) | payer MEDICARE, OTHER ==
--- NOTE | 2023-02-21 11:59 | Sleep Patient Instructions ---
Sleep Center Visit Summary - Patient Visit Information Reason for Visit: Annual Visit for PAP therapy - Patient Instructions Additional Instructions: You may continue with CPAP therapy with pressure set at 10 cmH2O. You have told me you are using a snoring oral device with good improvement of your sleep. I have ordered a sleep study to verify diagnosis and severity. We encourage you to continue to try to lose weight. Please follow up with the sleep care office after the sleep study. - Clinic Information Contact: [facility] [address] [place] [address] [email or web address] T: [phone]
--- NOTE | 2023-02-21 12:06 | SLEEP CARE CONSULTATION ---
Information from patient questionnaire entered by Viktoriya Regan. I have reviewed and concur with the information entered by Viktoriya Regan. This document represents the service I personally performed and the decisions made by , Melina Hagan ARNP. History of Present Illness Service Date and Time: 02/21/2023 1126 Previous diagnosis: Moderate, Obstructive Sleep Apnea-Hypopnea Syndrome AHI: 18.1 (in 2015) Reason for follow up: annual (LAST SEEN 01/2022) Equipment type: CPAP (RESMED Airsense 10, 10/2020) Equipment obtained from: [facility] Mask style: Nasal Prior sleep studies: Yes Year and Where: [facility] - [facility]; 2008 - [place], [place] Type of Sleep Study: Polysomnography HPI additional information: LASHELL WRIGHT was diagnosed to have moderate, AHI 18.1, obstructive sleep apnea-hypopnea syndrome and returned today for CPAP therapy annual follow-up. Sleep Study - Results Type of Sleep Study: Polysomnography Prior sleep studies: Yes Year and Where: 2015 - [facility]; 2008 - [place], [place] CPAP Compliance Data - Data Reviewed with Patient Average duration of nightly device use: 8 hours 4 minutes Compliance rate %: 45 (178/365 days used) Current pressure setting (cmH2O): 10 Average residual AHI: 1.5 Average large leak: 22.2 L/min Compliance data discussion: He is using a snoring OTC oral device. He stopped using his CPAP because of the mask leaking noise that is bothering his . Subjective Missed days of use due to: reports: travel, other (stopped using and is using snoring oral device) Patient concerns: reports: mask leak noise. denies: aerophagia, mask discomfort, air blowing in eyes, condensation in mask/hose, nasal congestion, dry mouth, nose, throat, epistaxis Observed to snore while using device: No Current pressure setting perceived as: comfortable On therapy, patient: reports: sleeping better, awakening more refreshed, being more awake and alert during the day, more rested overall, other (feels he sleeps as well with oral appliance in place). denies: drowsiness while driving Initial [place] Sleepiness Scale score: 6 (in 2011) Current [place] Sleepiness Scale score: 8 (02/21/23) Allergies and Home Medications Known drug allergies: Yes (as listed) Drug allergies reviewed: Yes Home medication list reviewed: Yes (stopped metoprolol; started Losartan potassium) Allergy and home medication list: Allergies codeine Allergy (Verified 02/20/23 13:13) Unknown Review of Systems Review of systems same as previous: Yes (NO CHANGE) Physical Exam Vital signs obtained and entered by: VIKTORIYA Morrison MA Blood Pressure: 110/60 (LEFT ARM) Cuff size: regular Heart Rate: 40 O2 Saturation: 98 Height: 6 ft Weight: 230 lb 12.8 oz Weight change since last visit: 12 lb loss Body Mass Index: 31.3 BMI Classification: Obese Impression and Plan 1. Obstructive Sleep Apnea-Hypopnea Syndrome, moderate, with poor treatment compliance and good apnea control. On CPAP therapy, the patient has better sleep quality and is more rested overall. Patient states he has not been using his CPAP because the mask leaking noise disturbs his at night. He states he has not been able to find a mask that does not leak and cause problems with his 's sleep. He obtained an [id number] oral device for snoring which does pull his lower jaw forward. He states he has been using that and his and he are both sleeping well. He has lost about 12 pounds since his last visit and states he has lost about 30 pounds over the last year. He would like to have another sleep study to see if his oral appliance is controlling his sleep apnea. I advised him that because of his weight loss and the fact that his last sleep study was done in 2016 we should obtain a new baseline for his sleep apnea. I will order a new sleep study and we will follow-up after the study is completed. I asked him not to wear his oral appliance during the night of the study. I also encouraged him to continue using his CPAP until we know if we can change him to an oral appliance for sleep apnea. He voiced understanding but is hesitant to have the air leaking noise bothering his . Patient's apnea severity and rationale for treatment to reduce apnea, improve sleep quality and reduce cardiovascular and cerebrovascular events was reviewed. I also reviewed the benefit of consistent device use of CPAP for arrhythmia and gastric reflux. 2. Obesity, unspecified. Currently patients BMI is 31.2. He has lost weight Obesity increases the risk of apnea, CPAP pressure requirements and overall health risks especially cardiovascular and diabetes. Thus patient is advised to continue to try to lose weight. * Continue CPAP pressure at 10 cmH2O for now with oral appliance in place as needed * PSG to verify diagnosis and severity * Notify me if snoring with mask or feeling that the pressure is too much or too little * Attempt to lose weight * Call this office if any problems using CPAP * Return for follow up after sleep study, or sooner if concerns arise Counseling Topics: Weight loss health impact Plan: PSG Visit Type: In Office Time Spent with Patient (minutes): 26 Provider Statement: I spent 100% of the Face to Face Visit with the patient with greater than 50% spent counseling the patient and coordination of care.
[2023-02-21 12:12] VITALS: BP 110/60; O2SAT 98
== END 2023-02-21 11:27 | disposition home or self-care (01) ==
LOC: SC 11:26
PROVIDERS: ATTEND Nurse Practitioner Family
DX: G47.33 Obstructive sleep apnea (adult) (pediatric) (principal); E66.9 Obesity, unspecified; Z68.31 Body mass index [BMI] 31.0-31.9, adult
CPT/HCPCS: 99213; G0463; 99212

== ENCOUNTER 2023-03-18 20:25 | Outpatient (CLI) | payer MEDICARE, OTHER | END 2023-03-18 20:26 | disposition home or self-care (01) | LOC: SC 20:25 | PROVIDERS: ATTEND Nurse Practitioner Family | DX: G47.31 Primary central sleep apnea (principal); G47.61 Periodic limb movement disorder; R00.1 Bradycardia, unspecified | CPT/HCPCS: 95810 ==

== ENCOUNTER 2023-03-28 13:06 | Outpatient (CLI) | payer MEDICARE, OTHER ==
--- NOTE | 2023-03-28 13:46 | Sleep Patient Instructions ---
Sleep Center Visit Summary - Patient Visit Information Reason for Visit: Sleep study followup - Patient Instructions Additional Instructions: You were here for follow up of verifying sleep study. You will be discontinued on CPAP therapy. You are to start Positional therapy to control your mild central sleep apnea. You may obtain positional belts or other commercial devices online. You may also use pillows to position yourself on your side or a T shirt with balls sewn into the back to help keep you on your side to sleep. We would like to follow up with you in a month to check effectiveness of therapy. You should follow up with sleep care in 3 months. You may contact us sooner for any questions or concerns. - Clinic Information Contact: [facility] [address] [place] [address] [email or web address] T: [phone]
--- NOTE | 2023-03-28 13:50 | SLEEP CARE CONSULTATION ---
Information from patient questionnaire entered by Ciera Regan. I have reviewed and concur with the information entered by Ciera Regan. This document represents the service I personally performed and the decisions made by , Melina Hagan ARNP. History of Present Illness Service Date and Time: 03/28/2023 1306 Initial [place] Sleepiness Scale score: 6 (in 2011) Current [place] Sleepiness Scale score: 7 (03/28/23) Additional HPI information: LASHELL WRIGHT returns for follow up and results of the recently performed polysomnography.The sleep study showed mild central sleep apnea with an average AHI of 13 and melva oxygen saturation of 89%. He had severe PLMs not contributing to sleep fragmentation and occasional bradycardia and PVCs. Because apnea is primarily in supine position, then positional management therapy could be effective. Methods discussed such as positioning with pillows, using a T-shirt with tennis balls in the back or commercial products that have a pillow format on back to prevent supine sleep. I reviewed the impact of weight changes on sleep apnea and strongly recommended losing weight. Patient counseled not drink alcohol less than 4 hours before bedtime as it can increase snoring and apnea. Patient was cautioned about risks of drowsy driving until sleepiness symptoms resolve. Patient denies drowsy driving. Sleep Study - Results Type of Sleep Study: Polysomnography (COMPLETED 03/18/23) Prior sleep studies: Yes Year and Where: 2015 - [facility]; 2008 - [place], [place] Polysomnography/Home Sleep Study results: IMPRESSION: The quality of the study is good. The patient had reduced sleep efficiency due to sleep onset insomnia and a prolonged awakening in the middle of the night. The sleep architecture was abnormal for sleep fragmentation and reduced amount of time spent in slow wave sleep (N3). Respiratory monitoring showed mild central sleep apnea-hypopnea (AHI = 13.0) associated with frequent arousals, oxyhemoglobin desaturation and minimal hypoxia (melva oxygen saturation of 89%). The respiratory events occurred mainly during __ (supine AHI = 96.4; non-supine = 3.61). No audible snore. There was severe periodic leg movement of sleep, not contributing to the sleep fragmentation. Cardiac rhythm was sinus rhythm with occasional sinus bradycardia and premature ventricular contractions. No abnormal behavior (parasomnia) observed during the night. Allergies and Home Medications Known drug allergies: Yes (codiene) Drug allergies reviewed: Yes Home medication list reviewed: Yes (stopped the Meformin about a month ago) Allergy and home medication list: Allergies codeine Allergy (Verified 02/21/23 11:35) Unknown Review of Systems Review of systems same as previous: Yes (RIGHT ARM) Physical Exam Vital signs obtained and entered by: CIERA Morrison MA Blood Pressure: 193/82 (LEFT ARM) Cuff size: regular Heart Rate: 42 O2 Saturation: 98 Height: 6 ft Weight: 235 lb Body Mass Index: 31.8 BMI Classification: Obese Impression and Plan 1. Central Sleep Apnea-Hypopnea Syndrome, mild, with lowest oxygen saturation of 89%. Patient with previous diagnosis of moderate obstructive sleep apnea (18.1). Positive pressure therapy could benefit arrhythmia and gastric reflux. His non- supine AHI is in normal range at 3.6 and he may do positional therapy to control his sleep apnea since it is mild. There was no audible snoring during the night. He will not continue with the CPAP. He has not been using it for a long time anyway. We discussed ways to avoid sleeping supine and he voiced understanding. 2. Periodic limb movement, severe, that did not fragment patients sleep. Periodic limb movement of sleep (PLMS) is characterized by episodes of repetitive limb movements that occur during sleep and usually involve the lower limbs. The etiology is unknown. Sleep hygiene methods can also improve sleep as well as lifestyle changes such as regular exercise. Patient was advised that no treatment is needed at this time. If symptoms increase, then further evaluation is indicated. 3. Bradycardia. During the sleep study the patient had occasional bradycardia and PVCs. He has a history of arrhythmia. I advised him to followup with cardiology for further evaluation as needed. 4. Obesity, unspecified. Currently patients BMI is 31.8. Obesity increases the risk of apnea, CPAP pressure requirements and overall health risks especially cardiovascular and diabetes. Thus patient is advised to lose weight. * Stop CPAP * Start positional therapy * Followup with cardiology for bradycardia as needed * Attempt to lose weight * Call this office if any problems * Return for follow up in 3 months, or sooner if concerns arise Counseling Topics: Weight loss health impact Follow up with Sleep Care in: 3 months (for Positional therapy) Follow up with: [facility] Visit Type: In Office Time Spent with Patient (minutes): 31 Provider Statement: I spent 100% of the Face to Face Visit with the patient with greater than 50% spent counseling the patient and coordination of care.
[2023-03-28 13:56] VITALS: BP 193/82; O2SAT 98
== END 2023-03-28 13:07 | disposition home or self-care (01) ==
LOC: SC 13:06
PROVIDERS: ATTEND Nurse Practitioner Family
DX: G47.31 Primary central sleep apnea (principal); G47.61 Periodic limb movement disorder; R00.1 Bradycardia, unspecified; E66.9 Obesity, unspecified; Z68.31 Body mass index [BMI] 31.0-31.9, adult
CPT/HCPCS: 99214; G0463; 99212

== ENCOUNTER 2023-09-12 08:00 | Outpatient (CLI) | payer MEDICARE, OTHER | END 2023-09-12 23:59 | disposition home or self-care (01) | LOC: LAB.S 08:00 | PROVIDERS: ATTEND Emergency Medicine | DX: N30.90 Cystitis, unspecified without hematuria (principal) | CPT/HCPCS: 87086 ==